=== PATIENT | male | born 1980 | race Caucasian/White ===

== ENCOUNTER 2017-03-27 02:34 | Inpatient (IN) | payer OTHER, MEDICAID ==
[2017-03-27 02:53] LABS: ADD DIFF? YES; ADD MORPH? NO; ADD SCAN? NO; ATYPICAL LYMPHOCYTE FLAG 0 (0-99); FRAGMENT RBC FLAG 0 (0-99); HEMATOCRIT 47.6 % (40.0-51.0); HEMOGLOBIN 16.7 g/dL (13.7-17.5); LEFT SHIFT FLG 20 (0-99); LIPEMIA HEMOLYSIS FLAG 90 (0-99); MEAN CELL HEMOGLOBIN 31.9 pg (27.9-34.1); MEAN CELL HEMOGLOBIN CONCENTR. 35.1 g/dL (32.4-36.7); MEAN PLATELET VOLUME 13.5 fL (8.7-11.7); PLATELET CLUMPS FLAG 10 (0-99); PLATELET COUNT 109 10^3/uL (150-400); RED BLOOD CELL COUNT 5.23 10^6/uL (4.40-6.38); RED CELL DISTRIBUTION WIDTH 11.8 % (11.5-15.2)
[2017-03-27] MEDS ORDERED: fentaNYL 100 MCG/2 ML INJ ONE (02:55)
[2017-03-27 03:00] LABS: ANION GAP 13 mEq/L (8-16); CARBON DIOXIDE 25 mEq/l (22-31); CHLORIDE 102 mEq/L (97-110); CREATININE 1.1 mg/dL (0.7-1.3); ETHANOL SERUM < 10 mg/dL (0-10); GLOMERULAR FILTRATION RATE > 60; GLUCOSE 102 mg/dL (70-100); SODIUM 140 mEq/L (134-144)
[2017-03-27 03:01] LABS: INR 1.15 (0.83-1.16); PROTIME(PATIENT) 14.7 SEC (12.0-15.0)
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
[2017-03-27 03:11] LABS: PLATELET ESTIMATE DECREASED (ADEQ)
[2017-03-27] MEDS ORDERED: HYDROmorphONE/DILAUDID 1 MG/ML SYR ONE (03:49)
[2017-03-27] MEDS ORDERED: PROPOFOL 200 MG/20 ML VIAL ONE (03:53)
[2017-03-27] MEDS ORDERED: KETAMINE 100 MG/10 ML SYR ONE (04:01)
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
[2017-03-27] MEDS ORDERED: HYDROmorphONE/DILAUDID 1 MG/ML SYR IVP PRN (04:33)
[2017-03-27] MEDS ORDERED: HYDROCODONE/APAP 5/325 TAB PO PRN (04:33)
[2017-03-27] MEDS ORDERED: ONDANSETRON 4 MG/2 ML VIAL IVP PRN (04:33)
[2017-03-27] MEDS ORDERED: ACETAMINOPHEN 325 MG TAB PO PRN (04:33)
[2017-03-27] MEDS ORDERED: NALOXONE HCL 0.4 MG/ML INJ IVP PRN (04:33)
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
[2017-03-27] MEDS ORDERED: KETAMINE 100 MG/10 ML SYR IVP ONE (04:59)
[2017-03-27] MEDS ORDERED: fentaNYL 100 MCG/2 ML INJ IVP ONE (04:59)
[2017-03-27] MEDS ORDERED: HYDROmorphONE/DILAUDID 1 MG/ML SYR IVP ONE (04:59)
[2017-03-27] MEDS ORDERED: PROPOFOL 200 MG/20 ML VIAL IVP ONE (05:00)
[2017-03-27] MEDS ORDERED: LR 1,000 ML IV SCH (05:00)
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
[2017-03-27 11:07] VITALS: PULSE 108
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
[2017-03-27] MEDS: LORazepam 2 MG/ML INJ IVP PRN ×2 (11:34→12:49)
[2017-03-27 12:12] VITALS: BP 105/61; RESP 20; TEMP 97.7; O2SAT 97
== END 2017-03-27 12:55 | disposition short-term general hospital (02) | DRG 964 ==
LOC: EDBD 02:34 → OBSVTOIN 04:23 → F2N 05:09
PROVIDERS: ADMIT Surgery; ATTEND Surgery
PROC: 0SS9XZZ Reposition Right Hip Joint, External Approach (ICD-10-PCS; principal; 2017-03-27)
DX: S06.6X0A Traumatic subarachnoid hemorrhage without loss of consciousness, initial encounter (principal); S36.031A Moderate laceration of spleen, initial encounter; S32.028A Other fracture of second lumbar vertebra, initial encounter for closed fracture; S32.038A Other fracture of third lumbar vertebra, initial encounter for closed fracture; S32.048A Other fracture of fourth lumbar vertebra, initial encounter for closed fracture; S73.004A Unspecified dislocation of right hip, initial encounter; S32.401A Unspecified fracture of right acetabulum, initial encounter for closed fracture; S32.512A Fracture of superior rim of left pubis, initial encounter for closed fracture; S21.212A Laceration without foreign body of left back wall of thorax without penetration into thoracic cavity, initial encounter; V47.5XXA Car driver injured in collision with fixed or stationary object in traffic accident, initial encounter; F11.90 Opioid use, unspecified, uncomplicated; R40.2421 Glasgow coma scale score 9-12, in the field [EMT or ambulance]; Z72.0 Tobacco use; F07.81 Postconcussional syndrome; Y92.410 Unspecified street and highway as the place of occurrence of the external cause
CPT/HCPCS: 80305; 82947-QW; 96374; G0480; J1170; J2060; J2704; J3010